=== PATIENT | male | born 1985 | race Caucasian/White ===

== ENCOUNTER 2023-09-15 00:24 | Inpatient (IN) | payer OTHER ==
[2023-09-15 01:00] VITALS: BMI 29.2
[2023-09-15] MEDS ORDERED: LOPERAMIDE HCL 2 MG CAPSULE PO PRN (02:01)
[2023-09-15] MEDS ORDERED: MAGNESIUM HYDROX 2400MG/30ML ORAL SUSPENSION 30 ML CUP PO PRN (02:01)
[2023-09-15] MEDS ORDERED: NALOXONE HCL 0.4 MG/ML VIAL IM PRN (02:01)
[2023-09-15] MEDS ORDERED: BISMUTH SUBSALICYLATE 524 MG/30 ML PO PRN (02:01)
[2023-09-15] MEDS ORDERED: IBUPROFEN 600 MG TABLET (FP) PO PRN (02:01)
[2023-09-15] MEDS ORDERED: BENZONATATE 200 MG CAPSULE PO PRN (02:01)
[2023-09-15] MEDS ORDERED: IBUPROFEN 400 MG TABLET (FP) PO PRN (02:01)
[2023-09-15] MEDS ORDERED: POLYETHYLENE GLYCOL (HEALTHYLAX) 3350 17 GM PACKET PO PRN (02:01)
[2023-09-15] MEDS ORDERED: guaiFENesin 600 MG TABLET.ER (FP) PO PRN (02:01)
[2023-09-15] MEDS ORDERED: MAG HYDROX/AL HYDROX/SIMETH 30 ML UNIT-DOSE CUP PO PRN (02:01)
[2023-09-15] MEDS ORDERED: ACETAMINOPHEN 325 MG TABLET (FP) PO PRN (02:01)
[2023-09-15] MEDS ORDERED: BENZOCAINE/MENTHOL (CHLORASEPTIC ) LOZENGE MM PRN (02:01)
[2023-09-15] MEDS ORDERED: NALOXONE HCL (KLOXXADO) 8 MG SPRAY NS PRN (02:01)
[2023-09-15] MEDS ORDERED: chlordiazePOXIDE HCL 25 MG CAPSULE ONE (02:37)
[2023-09-15] MEDS: chlordiazePOXIDE HCL 25 MG CAPSULE PO PRN ×2 (02:40→09:06)
[2023-09-15] MEDS: chlordiazePOXIDE HCL 25 MG CAPSULE PO SCH ×2 (04:33→10:09)
[2023-09-15] MEDS ORDERED: methaDONE HCL 40 MG DISPERSABLE TABLET PO SCH (10:00)
[2023-09-15] MEDS: DEXTROAMPHETAMINE/AMPHETAMINE 10 MG CAP.ER.24H PO SCH ×2 (10:09→10:45)
[2023-09-15] MEDS: NICOTINE 14 MG/24 HOURS TOPICAL PATCH TD SCH (10:10)
[2023-09-15] MEDS: PRENATAL VITAMINS W/ FOLIC ACID TABLET (FP) PO SCH (10:10)
[2023-09-15] MEDS: hydrOXYzine PAMOATE 25 MG CAPSULE (FP) PO PRN (12:10)
[2023-09-15] MEDS: ONDANSETRON *ODT* 4 MG TABLET SL PRN (12:10)
[2023-09-15] MEDS: METHOCARBAMOL 500 MG TABLET PO PRN (12:12)
[2023-09-15] MEDS: levETIRAcetam 500 MG TABLET (FP) PO SCH ×2 (12:29→22:11)
[2023-09-15] MEDS: diazePAM 5 MG TABLET PO SCH ×2 (17:30→22:12)
[2023-09-15] MEDS ORDERED: MELATONIN 5 MG TABLETS PO SCH (22:00)
[2023-09-15] MEDS: QUEtiapine FUMARATE 300 MG TABLET PO SCH (22:11)
[2023-09-15] MEDS: THIAMINE HCL 100 MG TABLET (FP) PO SCH (22:12)
[2023-09-16] MEDS ORDERED: chlordiazePOXIDE HCL 25 MG CAPSULE PO SCH (05:00)
[2023-09-16] MEDS: diazePAM 5 MG TABLET PO SCH ×4 (05:49→22:08)
[2023-09-16] MEDS: NICOTINE 14 MG/24 HOURS TOPICAL PATCH TD SCH (10:02)
[2023-09-16 10:22] LABS: HEMATOCRIT 40.9 % (35.4-49); HEMOGLOBIN 13.5 GM/dL (11.7-16.9); MCH 29.3 pg (25.7-33.7); MCHC 32.9 g/dl (32.0-35.9); PLATELET COUNT 206 10^3/uL (134-434); RDW 13.5 % (11.9-15.9); WHITE BLOOD COUNT 6.1 K/mm3 (4.0-10.0)
[2023-09-16 10:29] LABS: POTASSIUM 3.7 mmol/L (3.5-5.1)
[2023-09-16 10:35] LABS: ALBUMIN 3.4 g/dl (3.4-5.0); BLOOD UREA NITROGEN 3.7 mg/dL (7-18)
[2023-09-16 10:37] LABS: CALCIUM 9.1 mg/dL (8.5-10.1)
[2023-09-16 10:39] LABS: CREATININE 0.7 mg/dL (0.55-1.3)
[2023-09-16 10:41] LABS: BILIRUBIN,TOTAL 0.4 mg/dL (0.2-1); TOT PROT 6.3 g/dl (6.4-8.2)
[2023-09-16] MEDS: PRENATAL VITAMINS W/ FOLIC ACID TABLET (FP) PO SCH (10:59)
[2023-09-16] MEDS: levETIRAcetam 500 MG TABLET (FP) PO SCH ×2 (10:59→21:03)
[2023-09-16] MEDS: METHOCARBAMOL 500 MG TABLET PO PRN ×2 (10:59→21:03)
[2023-09-16] MEDS: DEXTROAMPHETAMINE/AMPHETAMINE 10 MG CAP.ER.24H PO SCH (10:59)
[2023-09-16] MEDS ORDERED: DEXTROAMPHETAMINE/AMPHETAMINE 10 MG CAP.ER.24H PO ONE (12:15)
[2023-09-16] MEDS: diazePAM 5 MG TABLET PO PRN (13:33)
[2023-09-16] MEDS: NICOTINE POLACRILEX 2 MG GUM BUC PRN (14:07)
[2023-09-16] MEDS: QUEtiapine FUMARATE 300 MG TABLET PO SCH (21:03)
[2023-09-16] MEDS: hydrOXYzine PAMOATE 25 MG CAPSULE (FP) PO PRN (21:03)
[2023-09-16] MEDS: THIAMINE HCL 100 MG TABLET (FP) PO SCH (21:03)
[2023-09-17] MEDS ORDERED: chlordiazePOXIDE HCL 10 MG CAPSULE PO PRN
[2023-09-17] MEDS ORDERED: chlordiazePOXIDE HCL 10 MG CAPSULE PO SCH (05:00)
[2023-09-17] MEDS: diazePAM 5 MG TABLET PO SCH ×3 (05:29→21:40)
[2023-09-17] MEDS: PRENATAL VITAMINS W/ FOLIC ACID TABLET (FP) PO SCH (10:20)
[2023-09-17] MEDS: DEXTROAMPHETAMINE/AMPHETAMINE 10 MG CAP.ER.24H PO SCH (10:20)
[2023-09-17] MEDS: levETIRAcetam 500 MG TABLET (FP) PO SCH ×2 (10:20→22:17)
[2023-09-17] MEDS: diazePAM 5 MG TABLET PO PRN ×2 (10:21→17:03)
[2023-09-17] MEDS: ONDANSETRON *ODT* 4 MG TABLET SL PRN (10:22)
[2023-09-17] MEDS: NICOTINE POLACRILEX 2 MG GUM BUC PRN ×2 (10:23→14:26)
[2023-09-17] MEDS: NICOTINE 14 MG/24 HOURS TOPICAL PATCH TD SCH (11:06)
[2023-09-17] MEDS ORDERED: DEXTROAMPHETAMINE/AMPHETAMINE 10 MG CAP.ER.24H PO ONE (12:10)
[2023-09-17] MEDS: LACTULOSE 20 GM/30 ML UDC (FOR ORAL USE ONLY) PO SCH ×2 (14:26→21:46)
[2023-09-17] MEDS: hydrOXYzine PAMOATE 25 MG CAPSULE (FP) PO PRN (17:03)
[2023-09-17] MEDS: THIAMINE HCL 100 MG TABLET (FP) PO SCH (21:40)
[2023-09-17] MEDS: QUEtiapine FUMARATE 300 MG TABLET PO SCH (21:41)
[2023-09-17] MEDS: METHOCARBAMOL 500 MG TABLET PO PRN (21:41)
[2023-09-18] MEDS ORDERED: chlordiazePOXIDE HCL 10 MG CAPSULE PO SCH (05:00)
[2023-09-18] MEDS: diazePAM 5 MG TABLET PO SCH ×2 (05:26→17:26)
[2023-09-18] MEDS: LACTULOSE 20 GM/30 ML UDC (FOR ORAL USE ONLY) PO SCH ×3 (05:27→22:40)
[2023-09-18] MEDS: NICOTINE 14 MG/24 HOURS TOPICAL PATCH TD SCH (10:17)
[2023-09-18] MEDS: NICOTINE POLACRILEX 2 MG GUM BUC PRN (10:17)
[2023-09-18] MEDS: diazePAM 5 MG TABLET PO PRN (10:19)
[2023-09-18] MEDS: levETIRAcetam 500 MG TABLET (FP) PO SCH ×2 (10:20→22:40)
[2023-09-18] MEDS: DEXTROAMPHETAMINE/AMPHETAMINE 10 MG CAP.ER.24H PO SCH (10:20)
[2023-09-18] MEDS: PRENATAL VITAMINS W/ FOLIC ACID TABLET (FP) PO SCH (10:20)
[2023-09-18] MEDS: METHOCARBAMOL 500 MG TABLET PO PRN ×2 (10:20→17:27)
[2023-09-18] MEDS ORDERED: diazePAM 5 MG TABLET PO ONE (16:00)
[2023-09-18] MEDS: hydrOXYzine PAMOATE 25 MG CAPSULE (FP) PO PRN (17:26)
[2023-09-18 22:13] VITALS: TEMP 97.7
[2023-09-18] MEDS: QUEtiapine FUMARATE 300 MG TABLET PO SCH (22:41)
[2023-09-18] MEDS: THIAMINE HCL 100 MG TABLET (FP) PO SCH (22:41)
[2023-09-19] MEDS ORDERED: chlordiazePOXIDE HCL 10 MG CAPSULE PO ONE (05:00)
[2023-09-19] MEDS: LACTULOSE 20 GM/30 ML UDC (FOR ORAL USE ONLY) PO SCH (05:55)
[2023-09-19] MEDS ORDERED: diazePAM 5 MG TABLET PO ONE (06:00)
[2023-09-19 06:58] VITALS: BP 125/89; PULSE 91; RESP 16
[2023-09-19] MEDS: NICOTINE POLACRILEX 2 MG GUM BUC PRN (08:02)
== END 2023-09-19 09:01 | disposition home or self-care (01) | DRG 773 ==
LOC: YASAS 00:24 → Y6N 04:00
PROVIDERS: ADMIT Allergy & Immunology; ATTEND Surgery
PROC: HZ2ZZZZ Detoxification Services for Substance Abuse Treatment (ICD-10-PCS; principal; 2023-09-15)
DX: F10.230 Alcohol dependence with withdrawal, uncomplicated (principal); F11.20 Opioid dependence, uncomplicated; F17.210 Nicotine dependence, cigarettes, uncomplicated; F25.9 Schizoaffective disorder, unspecified; F10.282 Alcohol dependence with alcohol-induced sleep disorder; F10.280 Alcohol dependence with alcohol-induced anxiety disorder; F10.24 Alcohol dependence with alcohol-induced mood disorder; F90.9 Attention-deficit hyperactivity disorder, unspecified type; F42.9 Obsessive-compulsive disorder, unspecified; F43.10 Post-traumatic stress disorder, unspecified; Z56.0 Unemployment, unspecified; Z59.01 Sheltered homelessness; Z28.310 Unvaccinated for COVID-19; Z28.9 Immunization not carried out for unspecified reason
CPT/HCPCS: 0241U-QW; 36415; 70450-TC; 71046-TC-FY; 72125-TC; 80053; 80177; 80307; 82140; 83605; 84484; 85025; 85027; 86780; 87635; 87811; 93005; 93010; 96372; 96374; 99285-25; Q0162

== ENCOUNTER 2024-01-02 06:23 | Inpatient (IN) | payer OTHER ==
[2024-01-02] MEDS ORDERED: MAG HYDROX/AL HYDROX/SIMETH 30 ML UNIT-DOSE CUP PO PRN (07:34)
[2024-01-02] MEDS ORDERED: NALOXONE HCL 0.4 MG/ML VIAL IM PRN (07:34)
[2024-01-02] MEDS ORDERED: guaiFENesin 600 MG TABLET.ER (FP) PO PRN (07:34)
[2024-01-02] MEDS ORDERED: BENZOCAINE/MENTHOL (CHLORASEPTIC ) LOZENGE MM PRN (07:34)
[2024-01-02] MEDS ORDERED: NALOXONE HCL (KLOXXADO) 8 MG SPRAY NS PRN (07:34)
[2024-01-02] MEDS ORDERED: hydrOXYzine PAMOATE 25 MG CAPSULE (FP) PO PRN (07:34)
[2024-01-02] MEDS ORDERED: BENZONATATE 200 MG CAPSULE PO PRN (07:34)
[2024-01-02] MEDS ORDERED: MAGNESIUM HYDROX 2400MG/30ML ORAL SUSPENSION 30 ML CUP PO PRN (07:34)
[2024-01-02] MEDS ORDERED: IBUPROFEN 400 MG TABLET (FP) PO PRN (07:34)
[2024-01-02] MEDS ORDERED: POLYETHYLENE GLYCOL (HEALTHYLAX) 3350 17 GM PACKET PO PRN (07:34)
[2024-01-02] MEDS ORDERED: LOPERAMIDE HCL 2 MG CAPSULE PO PRN (07:34)
[2024-01-02 08:10] VITALS: BMI 29.5
[2024-01-02] MEDS: NICOTINE 14 MG/24 HOURS TOPICAL PATCH TD SCH (10:01)
[2024-01-02] MEDS: PRENATAL VITAMINS W/ FOLIC ACID TABLET (FP) PO SCH (10:05)
[2024-01-02] MEDS ORDERED: PRENATAL VITAMINS W/ FOLIC ACID TABLET (FP) PO ONE (10:07)
[2024-01-02] MEDS ORDERED: NICOTINE 14 MG/24 HOURS TOPICAL PATCH TD ONE (10:07)
[2024-01-02] MEDS ORDERED: methaDONE HCL 40 MG DISPERSABLE TABLET PO ONE (12:24)
[2024-01-02] MEDS: levETIRAcetam 500 MG TABLET (FP) PO SCH (12:36)
[2024-01-02] MEDS: BISACODYL 5 MG TABLET.DR (FP) PO SCH (12:37)
[2024-01-02] MEDS: THIAMINE 100 MG TABLET PO SCH (21:17)
[2024-01-02] MEDS: MELATONIN 5 MG TABLETS PO SCH (21:17)
[2024-01-02] MEDS ORDERED: QUEtiapine FUMARATE 100 MG TABLET (FP) ONE (21:18)
[2024-01-02] MEDS: traZODone HCL 50 MG TABLET (FP) PO SCH (21:18)
[2024-01-02] MEDS: NICOTINE POLACRILEX 4 MG GUM BUC PRN (21:19)
[2024-01-02] MEDS: QUEtiapine FUMARATE 300 MG TABLET PO SCH (21:19)
[2024-01-03] MEDS ORDERED: DEXTROAMPHETAMINE/AMPHETAMINE 10 MG CAP.ER.24H PO SCH (08:00)
[2024-01-03] MEDS: DEXTROAMPHETAMINE/AMPHETAMINE 10 MG CAP.ER.24H PO SCH (08:22)
[2024-01-03] MEDS: SERTRALINE HCL 25 MG TABLET (FP) PO SCH (09:43)
[2024-01-03] MEDS: LORATADINE 10 MG TABLET PO SCH (09:44)
[2024-01-03] MEDS: IBUPROFEN 600 MG TABLET (FP) PO PRN (09:45)
[2024-01-03] MEDS ORDERED: methaDONE HCL 10 MG TABLET PO SCH (10:04)
[2024-01-03] MEDS: methaDONE HCL 10 MG TABLET PO SCH (11:01)
[2024-01-04] MEDS ORDERED: BISACODYL 5 MG TABLET.DR (FP) PO PRN (10:31)
[2024-01-04 14:40] LABS: HEMATOCRIT 42.2 % (35.4-49); HEMOGLOBIN 13.9 GM/dL (11.7-16.9); MCH 28.9 pg (25.7-33.7); MCHC 32.9 g/dl (32.0-35.9); MEAN CELL VOLUME 87.8 fl (80-96); MEAN PLT VOLUME 8.2 fl (7.5-11.1); PLATELET COUNT 251 10^3/uL (134-434); RDW 12.9 % (11.9-15.9); WHITE BLOOD COUNT 10.6 K/mm3 (4.0-10.0)
[2024-01-04 15:18] LABS: SYPHILIS W/ RPR CONF NON-REACTIVE (NONREACTIVE)
[2024-01-04 18:13] LABS: CHLORIDE 103 mmol/L (98-107); POTASSIUM 4.7 mmol/L (3.5-5.1); SODIUM 137 mmol/L (136-145)
[2024-01-04 18:15] LABS: BLOOD UREA NITROGEN 17.4 mg/dL (7-18)
[2024-01-04 18:16] LABS: ALBUMIN 3.4 g/dl (3.4-5.0); ANION GAP 12 mmol/L (4-13); CO2 22 mmol/L (21-32); GLUCOSE,RANDOM 124 mg/dL (74-106)
[2024-01-04 18:21] LABS: ALK PHOS 88 U/L (45-117); BILIRUBIN,TOTAL 0.5 mg/dL (0.2-1); CREATININE 0.9 mg/dL (0.55-1.3); SGOT/AST 55 U/L (15-37); SGPT/ALT 47 U/L (13-61); TOT PROT 7.1 g/dl (6.4-8.2)
[2024-01-04] MEDS ORDERED: QUEtiapine FUMARATE 100 MG TABLET (FP) ONE (18:39)
[2024-01-04] MEDS: ACETAMINOPHEN 325 MG TABLET (FP) PO PRN (21:11)
[2024-01-05] MEDS ORDERED: QUEtiapine FUMARATE 100 MG TABLET (FP) ONE (19:09)
[2024-01-06] MEDS ORDERED: guaiFENesin 600 MG TABLET.ER (FP) PO PRN (13:41)
[2024-01-06] MEDS ORDERED: DICYCLOMINE HCL 10 MG CAPSULE PO PRN (13:41)
[2024-01-06] MEDS ORDERED: BENZONATATE 200 MG CAPSULE PO PRN (13:41)
[2024-01-06] MEDS ORDERED: METHOCARBAMOL 500 MG TABLET PO PRN (13:41)
[2024-01-06] MEDS ORDERED: ONDANSETRON *ODT* 4 MG TABLET SL PRN (13:41)
[2024-01-06] MEDS ORDERED: QUEtiapine FUMARATE 100 MG TABLET (FP) ONE (18:48)
[2024-01-07] MEDS ORDERED: QUEtiapine FUMARATE 100 MG TABLET (FP) ONE (20:16)
[2024-01-08] MEDS ORDERED: QUEtiapine FUMARATE 100 MG TABLET (FP) ONE (20:54)
[2024-01-10] MEDS: DEXTROAMPHETAMINE/AMPHETAMINE 10 MG CAP.ER.24H PO SCH (09:20)
[2024-01-10] MEDS ORDERED: QUEtiapine FUMARATE 100 MG TABLET (FP) ONE (18:54)
[2024-01-11] MEDS: DEXTROAMPHETAMINE/AMPHETAMINE 10 MG CAP.ER.24H PO SCH (07:04)
[2024-01-11] MEDS ORDERED: QUEtiapine FUMARATE 100 MG TABLET (FP) ONE (19:32)
[2024-01-12] MEDS ORDERED: QUEtiapine FUMARATE 100 MG TABLET (FP) ONE (19:31)
[2024-01-13] MEDS ORDERED: QUEtiapine FUMARATE 100 MG TABLET (FP) ONE (19:15)
[2024-01-14] MEDS ORDERED: QUEtiapine FUMARATE 100 MG TABLET (FP) ONE (21:36)
[2024-01-15] MEDS ORDERED: QUEtiapine FUMARATE 100 MG TABLET (FP) ONE (19:27)
[2024-01-17] MEDS ORDERED: QUEtiapine FUMARATE 100 MG TABLET (FP) ONE (21:37)
[2024-01-18] MEDS ORDERED: QUEtiapine FUMARATE 100 MG TABLET (FP) ONE (21:07)
[2024-01-19 06:40] VITALS: BP 125/84; PULSE 73; RESP 18; TEMP 97.3
== END 2024-01-19 13:53 | disposition home or self-care (01) | DRG 772 ==
LOC: YASAS 06:23 → Y3W 08:45
PROVIDERS: ADMIT Allergy & Immunology; ATTEND Psychiatry & Neurology Pain Medicine
PROC: HZ42ZZZ Group Counseling for Substance Abuse Treatment, Cognitive-Behavioral (ICD-10-PCS; principal; 2024-01-02)
DX: F11.20 Opioid dependence, uncomplicated (principal); F10.20 Alcohol dependence, uncomplicated; F17.210 Nicotine dependence, cigarettes, uncomplicated; F43.10 Post-traumatic stress disorder, unspecified; F42.9 Obsessive-compulsive disorder, unspecified; F98.8 Other specified behavioral and emotional disorders with onset usually occurring in childhood and adolescence; F41.9 Anxiety disorder, unspecified; F32.A Depression, unspecified; J02.9 Acute pharyngitis, unspecified; R09.81 Nasal congestion; R73.03 Prediabetes; Z86.69 Personal history of other diseases of the nervous system and sense organs; Z28.310 Unvaccinated for COVID-19; Z28.9 Immunization not carried out for unspecified reason; Z59.00 Homelessness unspecified
CPT/HCPCS: 0241U-QW; 36415; 71046-TC-FY; 73070-TC-LT-FY; 73090-TC-LT-FY; 73110-TC-LT-FY; 73130-TC-LT-FY; 80053; 80307; 85025; 85027; 85610; 85730; 86780; 86803; 86850; 86900; 86901; 87070; 93005; 93010; 99283-25

== ENCOUNTER 2024-02-29 20:31 | Inpatient (IN) | payer OTHER ==
[2024-02-29 21:19] VITALS: BMI 29.1
[2024-02-29] MEDS ORDERED: guaiFENesin 600 MG TABLET.ER (FP) PO PRN (22:07)
[2024-02-29] MEDS ORDERED: MAGNESIUM HYDROX 2400MG/30ML ORAL SUSPENSION 30 ML CUP PO PRN (22:07)
[2024-02-29] MEDS ORDERED: DOCUSATE SODIUM 100 MG CAPSULE (FP) PO PRN (22:07)
[2024-02-29] MEDS ORDERED: NALOXONE HCL 0.4 MG/ML VIAL IM PRN (22:07)
[2024-02-29] MEDS ORDERED: P-EPHED 60MG/TRIPROLIDI 2.5MG TABLET PO PRN (22:07)
[2024-02-29] MEDS ORDERED: NALOXONE (NARCAN) HCL 4 MG/0.1 ML SPRAY NS PRN (22:07)
[2024-02-29] MEDS ORDERED: ACETAMINOPHEN 325 MG TABLET (FP) PO PRN (22:07)
[2024-02-29] MEDS ORDERED: LOPERAMIDE HCL 2 MG CAPSULE PO PRN (22:07)
[2024-02-29] MEDS ORDERED: MAG HYDROX/AL HYDROX/SIMETH 30 ML UNIT-DOSE CUP PO PRN (22:07)
[2024-02-29] MEDS ORDERED: POLYETHYLENE GLYCOL (HEALTHYLAX) 3350 17 GM PACKET PO PRN (22:07)
[2024-02-29] MEDS ORDERED: BENZONATATE 200 MG CAPSULE PO PRN (22:07)
[2024-02-29] MEDS ORDERED: levETIRAcetam 500 MG TABLET (FP) PO SCH (22:30)
[2024-02-29] MEDS ORDERED: BISACODYL 5 MG TABLET.DR (FP) PO PRN (22:44)
[2024-02-29] MEDS ORDERED: METOPROLOL TARTRATE 25 MG TABLET (FP) ONE (22:49)
[2024-02-29] MEDS: METOPROLOL TARTRATE 25 MG TABLET (FP) PO ONE (22:51)
[2024-02-29] MEDS ORDERED: QUEtiapine FUMARATE 100 MG TABLET (FP) ONE (23:30)
[2024-02-29] MEDS: METHOCARBAMOL 500 MG TABLET PO SCH (23:35)
[2024-02-29] MEDS: QUEtiapine FUMARATE 300 MG TABLET PO ONE (23:35)
[2024-02-29] MEDS: MELATONIN 5 MG TABLETS PO SCH (23:36)
[2024-02-29] MEDS: levETIRAcetam 500 MG TABLET (FP) PO SCH (23:36)
[2024-03-01] MEDS ORDERED: methaDONE HCL 40 MG DISPERSABLE TABLET PO SCH (06:00)
[2024-03-01] MEDS: methaDONE 80 MG, methaDONE 10 MG PO SCH (06:09)
[2024-03-01] MEDS: propRANOLol HCL 10 MG TABLET PO SCH (06:11)
[2024-03-01] MEDS: NICOTINE POLACRILEX 2 MG GUM BUC PRN (06:15)
[2024-03-01] MEDS: AMOX TR/POT CLAV 875MG/125MG TABLETS (FP) PO SCH (07:36)
[2024-03-01] MEDS: FOLIC ACID 1 MG TABLET (FP) PO SCH (10:02)
[2024-03-01] MEDS: PRENATAL VITAMINS W/ FOLIC ACID TABLET (FP) PO SCH (10:02)
[2024-03-01] MEDS: BENZOCAINE/MENTHOL (CHLORASEPTIC ) LOZENGE MM PRN (10:02)
[2024-03-01] MEDS: DEXTROAMPHETAMINE/AMPHETAMINE 10 MG CAP.ER.24H PO SCH (10:43)
[2024-03-01] MEDS: SERTRALINE HCL 25 MG TABLET (FP) PO SCH (10:45)
[2024-03-01 11:40] LABS: PH,URINE 5.5 (5.0-8.0); URINE APPEARANCE CLEAR; URINE BILIRUBIN NEGATIVE (NEGATIVE); URINE COLOR DK YELLOW; URINE GLUCOSE (UA) NEGATIVE (NEGATIVE); URINE KETONE NEGATIVE (NEGATIVE); URINE LEUK ESTERASE NEGATIVE (NEGATIVE); URINE NITRITE NEGATIVE (NEGATIVE); URINE PROTEIN NEGATIVE (NEGATIVE)
[2024-03-01 12:41] LABS: HEMATOCRIT 40.8 % (35.4-49); HEMOGLOBIN 13.6 GM/dL (11.7-16.9); MCH 28.7 pg (25.7-33.7); MCHC 33.3 g/dl (32.0-35.9); MEAN CELL VOLUME 86.2 fl (80-96); PLATELET COUNT 321 10^3/uL (134-434); RBC 4.74 M/mm3 (4.00-5.60); WHITE BLOOD COUNT 13.5 K/mm3 (4.0-10.0)
[2024-03-01 12:55] LABS: CHLORIDE 103 mmol/L (98-107); POTASSIUM 5.3 mmol/L (3.5-5.1); SODIUM 136 mmol/L (136-145)
[2024-03-01 13:10] LABS: BLOOD UREA NITROGEN 14.5 mg/dL (7-18)
[2024-03-01 13:11] LABS: ANION GAP 7 mmol/L (4-13); CO2 26 mmol/L (21-32); GLUCOSE,RANDOM 99 mg/dL (74-106)
[2024-03-01 13:14] LABS: SGOT/AST 40 U/L (15-37); SGPT/ALT 83 U/L (13-61)
[2024-03-01 13:15] LABS: BILIRUBIN,TOTAL 0.5 mg/dL (0.2-1); TOT PROT 7.6 g/dl (6.4-8.2)
[2024-03-01] MEDS: NICOTINE 21 MG/24 HOURS TOPICAL PATCH TD SCH (17:45)
[2024-03-01 18:35] LABS: ALK PHOS 143 U/L (45-117)
[2024-03-01] MEDS ORDERED: QUEtiapine FUMARATE 100 MG TABLET (FP) ONE (21:17)
[2024-03-01] MEDS: THIAMINE 100 MG TABLET PO SCH (21:19)
[2024-03-01] MEDS: QUEtiapine FUMARATE 300 MG TABLET PO SCH (21:20)
[2024-03-01] MEDS: hydrOXYzine PAMOATE 25 MG CAPSULE (FP) PO PRN (21:21)
[2024-03-02] MEDS: IBUPROFEN 600 MG TABLET (FP) PO PRN (13:20)
[2024-03-02] MEDS: levETIRAcetam 250 MG TABLET PO SCH (21:13)
[2024-03-04] MEDS ORDERED: QUEtiapine FUMARATE 100 MG TABLET (FP) ONE (21:09)
[2024-03-05] MEDS: IBUPROFEN 400 MG TABLET (FP) PO PRN (21:27)
[2024-03-06] MEDS ORDERED: QUEtiapine FUMARATE 100 MG TABLET (FP) ONE (21:17)
[2024-03-07 06:54] VITALS: RESP 16; TEMP 97.1
[2024-03-07 13:22] VITALS: BP 135/91; PULSE 83
== END 2024-03-07 14:49 | disposition left against medical advice (07) | DRG 770 ==
LOC: YASAS 20:31 → Y3W 23:03
PROVIDERS: ADMIT Allergy & Immunology; ATTEND Psychiatry & Neurology Pain Medicine
PROC: HZ42ZZZ Group Counseling for Substance Abuse Treatment, Cognitive-Behavioral (ICD-10-PCS; principal; 2024-02-29)
DX: F10.20 Alcohol dependence, uncomplicated (principal); F11.20 Opioid dependence, uncomplicated; F41.9 Anxiety disorder, unspecified; F32.A Depression, unspecified; F43.10 Post-traumatic stress disorder, unspecified; F42.9 Obsessive-compulsive disorder, unspecified; E87.5 Hyperkalemia; G40.909 Epilepsy, unspecified, not intractable, without status epilepticus; R73.03 Prediabetes; F91.8 Other conduct disorders; Z91.199 Patient's noncompliance with other medical treatment and regimen due to unspecified reason; Z86.59 Personal history of other mental and behavioral disorders; Z59.00 Homelessness unspecified
CPT/HCPCS: 36415; 73130-TC-LT-FY; 80053; 80305; 80307; 81003; 85027; 86780; 87811; 93005; 93010